=== PATIENT | male | born 1960 | race Caucasian/White ===

== ENCOUNTER → 2017-09-25 | Outpatient (CLI) | payer OTHER | END | disposition home or self-care (01) | LOC: PPH VACUNA 10:52 | DX: Z23 Encounter for immunization (principal) ==

== ENCOUNTER 2018-01-02 08:38 | Outpatient (CLI) | payer OTHER | END 2018-01-02 09:00 | disposition home or self-care (01) | LOC: NUCLEAR 08:38 | DX: I35.1 Nonrheumatic aortic (valve) insufficiency (principal) ==

== ENCOUNTER 2018-01-06 07:23 | Outpatient (CLI) | payer OTHER | END 2018-01-06 12:25 | disposition home or self-care (01) | LOC: MRI 07:23 | DX: M51.27 Other intervertebral disc displacement, lumbosacral region (principal); M51.34 Other intervertebral disc degeneration, thoracic region | CPT/HCPCS: 72146; 72148 ==

== ENCOUNTER → 2018-01-21 | Outpatient (CLI) | payer OTHER | END | disposition home or self-care (01) | LOC: PPH VACUNA 09:48 | DX: Z23 Encounter for immunization (principal) ==

== ENCOUNTER 2018-01-31 10:44 | Outpatient (CLI) | payer OTHER | END 2018-01-31 13:35 | disposition home or self-care (01) | LOC: LAB 10:44 | DX: R06.00 Dyspnea, unspecified (principal); I35.1 Nonrheumatic aortic (valve) insufficiency; I50.32 Chronic diastolic (congestive) heart failure; A53.9 Syphilis, unspecified; A74.9 Chlamydial infection, unspecified; A54.9 Gonococcal infection, unspecified ==

== ENCOUNTER → 2018-06-24 11:51 | Outpatient (CLI) | payer OTHER | END | disposition home or self-care (01) | LOC: LAB 11:51 | DX: D50.8 Other iron deficiency anemias (principal); Z79.01 Long term (current) use of anticoagulants ==

== ENCOUNTER → 2018-07-01 14:40 | Outpatient (CLI) | payer OTHER | END | disposition home or self-care (01) | LOC: LAB 14:40 | DX: J90 Pleural effusion, not elsewhere classified (principal) ==

== ENCOUNTER 2018-07-08 13:19 | Outpatient (CLI) | payer OTHER | END 2018-07-08 13:21 | disposition home or self-care (01) | LOC: LAB 13:19 | DX: D50.8 Other iron deficiency anemias (principal); J90 Pleural effusion, not elsewhere classified ==

== ENCOUNTER 2018-07-28 11:36 | Outpatient (CLI) | payer OTHER | END 2018-07-28 11:47 | disposition home or self-care (01) | LOC: LAB 11:36 | DX: J90 Pleural effusion, not elsewhere classified (principal) ==

== ENCOUNTER 2018-08-05 10:09 | Outpatient (CLI) | payer OTHER | END 2018-08-05 10:31 | disposition home or self-care (01) | LOC: LAB 10:09 | DX: J90 Pleural effusion, not elsewhere classified (principal) ==

== ENCOUNTER → 2018-08-17 08:28 | Outpatient (CLI) | payer OTHER | END | disposition home or self-care (01) | LOC: LAB 08:28 | DX: J90 Pleural effusion, not elsewhere classified (principal); Z79.01 Long term (current) use of anticoagulants ==

== ENCOUNTER 2018-11-11 08:46 | Outpatient (CLI) | payer OTHER | END 2018-11-11 08:51 | disposition home or self-care (01) | LOC: LAB 08:46 | DX: D64.89 Other specified anemias (principal); N39.0 Urinary tract infection, site not specified; R10.9 Unspecified abdominal pain; E03.8 Other specified hypothyroidism; E78.49 Other hyperlipidemia; E55.9 Vitamin D deficiency, unspecified; R80.8 Other proteinuria; E11.9 Type 2 diabetes mellitus without complications; R73.09 Other abnormal glucose; E78.2 Mixed hyperlipidemia; R73.02 Impaired glucose tolerance (oral); I10 Essential (primary) hypertension ==

== ENCOUNTER → 2019-02-24 08:21 | Outpatient (CLI) | payer OTHER | END | disposition home or self-care (01) | LOC: LAB 08:21 | DX: D64.89 Other specified anemias (principal); R10.84 Generalized abdominal pain; E78.49 Other hyperlipidemia ==

== ENCOUNTER 2019-08-25 08:31 | Outpatient (CLI) | payer OTHER | END 2019-08-25 08:36 | disposition home or self-care (01) | LOC: LAB 08:31 | DX: R10.84 Generalized abdominal pain (principal); E78.49 Other hyperlipidemia ==

== ENCOUNTER 2020-04-28 09:55 | Outpatient (CLI) | payer OTHER | END 2020-04-28 10:09 | disposition home or self-care (01) | LOC: NUCLEAR 09:55 | PROVIDERS: ATTEND Internal Medicine | DX: I35.1 Nonrheumatic aortic (valve) insufficiency (principal) ==

== ENCOUNTER 2020-06-06 08:00 | Outpatient (CLI) | payer OTHER | END 2020-06-06 15:00 | disposition home or self-care (01) | LOC: PPH VACUNA 08:00 | DX: Z23 Encounter for immunization (principal) ==

== ENCOUNTER → 2020-08-24 09:05 | Outpatient (CLI) | payer OTHER | END | disposition home or self-care (01) | LOC: LAB 09:05 | PROVIDERS: ATTEND Internal Medicine | DX: D64.89 Other specified anemias (principal); R10.84 Generalized abdominal pain; E03.8 Other specified hypothyroidism; E78.49 Other hyperlipidemia; R80.8 Other proteinuria; R73.09 Other abnormal glucose ==

== ENCOUNTER 2020-08-30 09:52 | Outpatient (CLI) | payer OTHER | END 2020-08-30 14:32 | disposition home or self-care (01) | LOC: LAB 09:52 | DX: Z03.818 Encounter for observation for suspected exposure to other biological agents ruled out (principal) ==

== ENCOUNTER 2020-09-05 16:40 | Outpatient (CLI) | payer OTHER | END 2020-09-05 18:00 | disposition home or self-care (01) | LOC: PPH VACUNA 16:40 | DX: Z23 Encounter for immunization (principal) ==

== ENCOUNTER 2021-03-06 08:56 | Outpatient (CLI) | payer OTHER | END 2021-03-06 15:00 | disposition home or self-care (01) | LOC: LAB 08:56 | DX: D64.9 Anemia, unspecified (principal); R10.9 Unspecified abdominal pain; E78.5 Hyperlipidemia, unspecified ==

== ENCOUNTER 2021-06-15 08:00 | Outpatient (CLI) | payer OTHER | END 2021-06-15 08:30 | disposition home or self-care (01) | LOC: PPH VACUNA 08:00 | PROVIDERS: ATTEND Emergency Medicine Pediatric Emergency Medicine | DX: Z23 Encounter for immunization (principal) ==

== ENCOUNTER 2021-06-20 08:00 | Outpatient (CLI) | payer OTHER | END 2021-06-20 08:30 | disposition home or self-care (01) | LOC: PPH VACUNA 08:00 | PROVIDERS: ATTEND Emergency Medicine Pediatric Emergency Medicine | DX: Z23 Encounter for immunization (principal) ==

== ENCOUNTER 2021-08-31 10:18 | Outpatient (CLI) | payer OTHER | END 2021-08-31 10:22 | disposition home or self-care (01) | LOC: LAB 10:18 | PROVIDERS: ATTEND Internal Medicine | DX: D64.89 Other specified anemias (principal); R10.84 Generalized abdominal pain; E78.49 Other hyperlipidemia; R07.89 Other chest pain; R80.8 Other proteinuria; R73.09 Other abnormal glucose ==

== ENCOUNTER 2021-12-20 08:00 | Outpatient (CLI) | payer OTHER | END 2021-12-20 08:30 | disposition home or self-care (01) | LOC: PPH VACUNA 08:00 | PROVIDERS: ATTEND Emergency Medicine Pediatric Emergency Medicine | DX: Z23 Encounter for immunization (principal) ==

== ENCOUNTER 2022-02-20 10:16 | Outpatient (CLI) | payer OTHER | END 2022-02-20 10:17 | disposition home or self-care (01) | LOC: NUCLEAR 10:16 | PROVIDERS: ATTEND Internal Medicine | DX: I35.1 Nonrheumatic aortic (valve) insufficiency (principal) ==

== ENCOUNTER 2022-03-05 09:35 | Outpatient (CLI) | payer OTHER | END 2022-03-05 09:36 | disposition home or self-care (01) | LOC: LAB 09:35 | PROVIDERS: ATTEND Internal Medicine | DX: D64.9 Anemia, unspecified (principal); R10.9 Unspecified abdominal pain; E78.5 Hyperlipidemia, unspecified; E11.9 Type 2 diabetes mellitus without complications ==

== ENCOUNTER 2022-05-22 10:51 | Outpatient (CLI) | payer OTHER | END 2022-05-22 10:56 | disposition home or self-care (01) | LOC: PPH VACUNA 10:51 | PROVIDERS: ATTEND Emergency Medicine Pediatric Emergency Medicine | DX: Z23 Encounter for immunization (principal) ==

== ENCOUNTER 2022-09-02 10:20 | Outpatient (CLI) | payer OTHER | END 2022-09-02 10:30 | disposition home or self-care (01) | LOC: PPH VACUNA 10:20 | PROVIDERS: ATTEND Emergency Medicine Pediatric Emergency Medicine | DX: Z23 Encounter for immunization (principal) ==

== ENCOUNTER 2023-03-04 07:57 | Outpatient (CLI) | payer OTHER | END 2023-03-04 08:07 | disposition home or self-care (01) | LOC: LAB 07:57 | PROVIDERS: ATTEND Internal Medicine | DX: D64.9 Anemia, unspecified (principal); R10.9 Unspecified abdominal pain; E78.5 Hyperlipidemia, unspecified; R80.9 Proteinuria, unspecified; E11.9 Type 2 diabetes mellitus without complications ==

== ENCOUNTER 2023-08-20 10:13 | Outpatient (CLI) | payer OTHER | END 2023-08-20 10:36 | disposition home or self-care (01) | LOC: NUCLEAR 10:13 | PROVIDERS: ATTEND Internal Medicine | DX: I35.0 Nonrheumatic aortic (valve) stenosis (principal); I35.1 Nonrheumatic aortic (valve) insufficiency ==

== ENCOUNTER → 2023-08-26 09:48 | Outpatient (CLI) | payer OTHER ==
[2023-08-26 10:42] LABS: HEMATOCRIT 38.7 % (39.0-48.0); HEMOGLOBIN 13.3 g/dL (13-16.00); MEAN CORPUSCULAR HEMOGLOBIN 29.9 pg (27.00-32.0); MEAN CORPUSCULAR HGB CONC 34.3 g/dl (32.0-36.0); PLATELET COUNT 132 K/uL (150-450); RED BLOOD COUNT 4.45 M/uL (4.00-6.00)
[2023-08-26 11:20] LABS: ALBUMIN 4.1 gm/dL (3.4-5.0); BILIRUBIN TOTAL 0.73 mg/dL (0.3-1.2); CALCIUM 9.2 mg/dL (8.5-10.1); CHOL HDL RATIO 2.3 (0-5.0); CREATININE SERUM 1.17 mg/dL (0.70-1.30); GFR 62.96; GLOBULINA 3.1 G/DL (2.4-3.5); POTASSIUM 3.9 mEq/L (3.5-5.1); TOTAL PROTEIN 7.2 gm/dL (6.4-8.2); TSH 1.73 uIU/mL (0.358-3.74)
== END | disposition home or self-care (01) ==
LOC: LAB 09:48
PROVIDERS: ATTEND Internal Medicine
DX: D64.9 Anemia, unspecified (principal); R10.9 Unspecified abdominal pain; E03.9 Hypothyroidism, unspecified; E78.5 Hyperlipidemia, unspecified; R80.9 Proteinuria, unspecified; E11.9 Type 2 diabetes mellitus without complications

== ENCOUNTER 2024-06-25 11:00 | Outpatient (CLI) | payer OTHER | END 2024-06-25 11:15 | disposition home or self-care (01) | LOC: PPH VACUNA 11:00 | PROVIDERS: ATTEND Emergency Medicine Pediatric Emergency Medicine | DX: Z23 Encounter for immunization (principal) ==

== ENCOUNTER 2024-07-28 09:18 | Outpatient (CLI) | payer OTHER | END 2024-07-28 09:19 | disposition home or self-care (01) | LOC: NUCLEAR 09:18 | PROVIDERS: ATTEND Internal Medicine | DX: I10 Essential (primary) hypertension (principal) ==

== ENCOUNTER 2024-09-06 08:48 | Outpatient (CLI) | payer OTHER ==
[2024-09-06 10:20] LABS: HEMATOCRIT 38.8 % (39.0-48.0); HEMOGLOBIN 13.4 g/dL (13-16.00); MEAN CELL VOLUME 87.3 fL (80.0-100.00); MEAN CORPUSCULAR HEMOGLOBIN 30.1 pg (27.00-32.0); MEAN CORPUSCULAR HGB CONC 34.5 g/dl (32.0-36.0); PLATELET COUNT 130 K/uL (150-450); RED BLOOD COUNT 4.44 M/uL (4.00-6.00); RED CELL DISTRIBUTION WIDTH 13.9 % (11.5-14.5)
[2024-09-06 11:17] LABS: ALBUMIN 3.9 gm/dL (3.4-5.0); BILIRUBIN TOTAL 0.53 mg/dL (0.3-1.2); CALCIUM 9.1 mg/dL (8.5-10.1); CREATININE SERUM 1.11 mg/dL (0.70-1.30); GFR 66.69; GLOBULINA 3.5 G/DL (2.4-3.5); POTASSIUM 4.33 mEq/L (3.5-5.1); TOTAL PROTEIN 7.4 gm/dL (6.4-8.2)
== END 2024-09-06 08:53 | disposition home or self-care (01) ==
LOC: LAB 08:48
PROVIDERS: ATTEND Internal Medicine
DX: D64.9 Anemia, unspecified (principal); R10.9 Unspecified abdominal pain; E78.5 Hyperlipidemia, unspecified; R80.9 Proteinuria, unspecified; R73.09 Other abnormal glucose; E11.9 Type 2 diabetes mellitus without complications

== ENCOUNTER → 2025-03-04 09:10 | Outpatient (CLI) | payer OTHER ==
[2025-03-04 09:49] LABS: BASO % 0.7 % (0.1-1.2); EOS # 0.21 (0.04-0.54); EOS % 4.9 % (0.7-7.0); HEMOGLOBIN 13.1 g/dL (13.7-17.5); LYMPH # 1.25 (1.18-3.74); LYMPH % 29.4 % (19.3-53.1); MEAN CORPUSCULAR HEMOGLOBIN 28.8 pg (25.6-32.2); MONO # 0.48 (0.24-0.82); MONO % 11.3 % (4.7-12.5); NEUT # 2.27 (1.56-6.13); NEUT % 53.5 % (34.0-71.1); PLATELET COUNT 168 K/uL (163-369); RED BLOOD COUNT 4.55 M/uL (4.63-6.08); RED CELL DISTRIBUTION WIDTH 13.1 % (11.6-14.4)
[2025-03-04 10:49] LABS: BILIRUBIN TOTAL 0.56 mg/dL (0.3-1.2); CALCIUM 9.4 mg/dL (8.5-10.1); CHOL HDL RATIO 2.5 (0-5.0); CREATININE SERUM 1.17 mg/dL (0.70-1.30); GFR 62.56; GLOBULINA 3.3 G/DL (2.4-3.5); POTASSIUM 4.11 mEq/L (3.5-5.1); TOTAL PROTEIN 7.3 gm/dL (6.4-8.2)
== END | disposition home or self-care (01) ==
LOC: LAB 09:10
PROVIDERS: ATTEND Internal Medicine
DX: D64.9 Anemia, unspecified (principal); R10.9 Unspecified abdominal pain; E78.5 Hyperlipidemia, unspecified; R80.9 Proteinuria, unspecified; E11.9 Type 2 diabetes mellitus without complications

== ENCOUNTER → 2025-08-13 08:00 | Outpatient (CLI) | payer OTHER ==
[2025-08-13 10:41] LABS: URINE APPEARANCE Clear; URINE BILIRRUBIN Negative (NEGATIVE); URINE BLOOD Negative; URINE COLOR Yellow; URINE GLUCOSE Negative (NEGATIVE); URINE KETONE Negative (NEGATIVE); URINE LEUKOCYTE Negative; URINE NITRATE Negative; URINE PROTEIN Negative (NEGATIVE); URINE UROBILINOGEN 0.2 E.U./dl
[2025-08-13 10:43] LABS: BASO % 1.5 % (0.1-1.2); EOS # 0.28 (0.04-0.54); EOS % 7.0 % (0.7-7.0); LYMPH # 1.33 (1.18-3.74); LYMPH % 33.1 % (19.3-53.1); MEAN PLATELET VOLUME 11.30 fl (9.4-12.4); MONO # 0.40 (0.24-0.82); MONO % 10.0 % (4.7-12.5); NEUT # 1.94 (1.56-6.13); NEUT % 48.2 % (34.0-71.1); RED CELL DISTRIBUTION WIDTH 13.2 % (11.6-14.4)
[2025-08-13 10:45] LABS: URINE EPITHELIAL CELLS 1.5 uL (0.0-38.8)
[2025-08-13 10:50] LABS: URINE BACTERIA 2.3 uL (0.0-1933); URINE CAST 0.00 uL (0.0-1.40); URINE RBC 1.9 uL (0.0-20.8); URINE WBC 0.9 uL (0.0-23.2)
[2025-08-13 11:29] LABS: INR 1.04
[2025-08-13 11:40] LABS: ALT/SGPT 27.0 U/L (12-78); AST/SGOT 26.0 U/L (15-37); BILIRUBIN TOTAL 0.6 mg/dL (0.3-1.2); BUN CREA RATIO 16.0 (7.0-25.0); CHOL HDL RATIO 2.3 (0-5.0); CREATININE SERUM 1.11 mg/dL (0.70-1.30); GFR 66.48; GLOBULINA 3.1 G/DL (2.4-3.5); GLUCOSE FASTING 96.0 mg/dL (65-100); HDL 79.0 mg/dl (40-60); LDL 93.0 mg/dl (0-130); OSMOLALITY SERUM 287.0 MOSM/KG (275-295); VLDL 8.0 (0-39)
== END | disposition home or self-care (01) ==
LOC: RAD 08:00
DX: R07.89 Other chest pain (principal)

== ENCOUNTER 2025-08-23 16:33 | Outpatient (CLI) | payer OTHER ==
[2025-08-23 17:12] LABS: BASO % 0.8 % (0.1-1.2); EOS # 0.18 (0.04-0.54); EOS % 3.6 % (0.7-7.0); LYMPH # 0.95 (1.18-3.74); LYMPH % 19.0 % (19.3-53.1); MEAN PLATELET VOLUME 11.20 fl (9.4-12.4); MONO # 0.41 (0.24-0.82); MONO % 8.2 % (4.7-12.5); NEUT # 3.40 (1.56-6.13); NEUT % 68.0 % (34.0-71.1); RED CELL DISTRIBUTION WIDTH 13.4 % (11.6-14.4)
[2025-08-23 17:36] LABS: COL EPI 117 SECONDS (82-175)
== END 2025-08-23 16:46 | disposition home or self-care (01) ==
LOC: LAB 16:33
PROVIDERS: ATTEND Internal Medicine Geriatric Medicine
DX: D68.9 Coagulation defect, unspecified (principal); D69.6 Thrombocytopenia, unspecified; D64.9 Anemia, unspecified